=== PATIENT | female | born 1985 | race Caucasian/White ===

== ENCOUNTER 2017-07-11 14:19 | Emergency (ER) | payer BC ==
[~2017-07-11] VITALS: Ht 165.1 cm; Wt 81.6 kg
[~2017-07-11 14:19] MED LIST: BACTRIM DS 8001 TA1 PO; ETODOLAC400 MG PO; FLEXERIL10 MG PO; HYDROCODONE-APA1 TA1 PO; K-DUR 2020 MEQ PO; NOMEDS XX; ULTRAM50 MG PO
--- OUTSIDE RECORDS SUMMARY | 2017-07-11 14:42 | External Medical Summary Rpt | CCD ---
Author Author , ROMELIA LEÓN Address Unknown Phone [email or web address] Purpose Continuity of Care Document - through 2016
--- OUTSIDE RECORDS SUMMARY | 2017-07-11 14:42 | External Medical Summary Rpt | CCD ---
Author Author [facility] Address Unknown Phone Unavailable Purpose Continuity of Care Document - through 2016
--- OUTSIDE RECORDS SUMMARY | 2017-07-11 14:42 | External Medical Summary Rpt | CCD ---
Demographics Preferred Language Gambian Marital Status Unknown Pentecostal Affiliation Unknown Race Unknown Ethnic Group Unknown Author Author , ROMELIA LEÓN Address Unknown Phone Immunization No patient found.
--- OUTSIDE RECORDS SUMMARY | 2017-07-11 14:42 | External Medical Summary Rpt | CCD ---
Demographics Preferred Language Luxembourger Marital Status Unknown Christian Affiliation Unknown Race Unknown Ethnic Group Unknown Author Author , ROMELIA LEÓN Address Unknown Phone Immunization No patient found.
--- OUTSIDE RECORDS SUMMARY | 2017-07-11 14:42 | External Medical Summary Rpt | CCD ---
Author Author , ROMELIA LEÓN Address Unknown Phone [email or web address] Purpose Continuity of Care Document - through 2016
[2017-07-11 15:05] LABS: URINE BILIRUBIN - DIPSTICK NEGATIVE (NEG); UTC URINE PREGNANCY NEGATIVE (NEG)
[2017-07-11 15:06] LABS: URINE BLOOD NEGATIVE (NEG)
[2017-07-11] MEDS ORDERED: IBUPROFEN800 MG PO (15:09)
[2017-07-11] MEDS ORDERED: FLEXERIL10 MG PO (15:17)
--- NOTE | 2017-07-11 15:17 | Urgent Treatment Center Report ---
History of Present Issue Date/Time Seen by Provider 07/11/17 1500 Visit Reason Pt arrived:Walked Presenting Problem:FOR 3 WKS LOWER RIGHT BACK PAIN WITH NUMBNESS IN TOES AND FINGERS ON RIGHT SIDE Location if Accident: Onset of symptoms date/time:/ or onset unknown for:MEDICAL HX UNKNOWN Have you (or family members/close friends) recently traveled outside the [place]? N If Yes, where/when: Have you had exposure to infectious disease within the past month? TB? Other? Specify: Patient state that for around 3 weeks now she has been having pain in her right lower back that radiates down right buttock area into her right leg State that she has been having shooting pain in right leg that is worse when she tries to raise her leg or walk. State that about a week ago she had felt tingling in her toes like needles when it would start hurting ALLERGIES Coded Allergies: No Known Allergies (08/05/15) Home Medications Active Scripts Cyclobenzaprine Hcl (Flexeril) 10 MG PO TID #30 TAB Prov: 04/29/16 Tramadol Hcl (Ultram 50MG) 50 MG PO QIDP PRN pain #12 TAB Prov: 04/29/16 Reported Medications No Home Medications (NO HOME MEDICATIONS) 1 EACH XX ONCE History Medical History General CAD? No Angina: No [place]: No Hypertension? No Hyperlipidemia? No CHF? No DVT? No PE? No COPD? No Asthma? No Anemia? No GERD? No Gastric ulcers? No GI Bleed? No Hernia? No Thyroid Problems? No Hypothyroidism? No CVA? No Seizures? No Diabetes? No Renal Insuffiency? No UTI? No Stones? No BPH? No GB Disease: No Nephritic Syndrome? No Asplenia? No Hepatitis? No Sickle Cell Disease? No Arthritis? No Migraines? No Cataracts? No Glaucoma? No MRSA? No HIV? No TB? No Anxiety? No Depression? No Cancer? No More? No Immunization HX DT/Tetanus 1-4 Years Ago Surgical Hx Previous Surgery?Y ABLATION TUBUAL ORAL SURGERY Social History Smoking Hx Smoker: Never Smoker Tobacco: No Packs/day < 1 Pack Alcohol Alcohol: No Review of Systems All Other Systems Reviewed and Negative Musculoskeletal muscle pain Physical Exam Vital Signs Vital Signs Date Time Temp Pulse Resp B/P Pulse O2 O2 Flow FiO2 Ox Delivery Rate 07/11 1510 18 07/11 1449 98.6 112 18 156/112 97 12 1427 98.6 112 18 156/112 97 General Appearance normal appearance, WD/WN, no apparent distress Respiratory Status Yes: trachea midline, chest symmetrical, non tender chest. No: respiratory distress. Lung Sounds bilateral: normal breath sounds, lungs clear. Cardiovascular normal exam, regular rate/rhythm, no peripheral edema Back normal inspection, no CVA tenderness, no vertebral tenderness, bowel/ bladder continent, gait normal Neurologic alert, normal exam, oriented x 3 Comments Patient complaining of pain in lower back that radiates down into right buttock area and down right leg like that seen with sciatica Medical Decision Making LABS/Meds/Orders Pt receiving controlled substance in ED? No Results/Orders Laboratory Tests 07/11/17 1450: Urine Color YELLOW, Urine Appearance Cloudy, Urine pH 7.0, Ur Specific Orange 1.015, Urine Protein NEGATIVE, Urine Ketones NEGATIVE, Urine Blood NEGATIVE, Urine Nitrate NEGATIVE, Urine Bilirubin NEGATIVE, Urine Urobilinogen 1.0, Ur Leukocyte Esterase NEGATIVE, Urine Glucose NEGATIVE, Urine Test NEGATIVE Current Medication Orders Sig/Shira Start time Last Medication Dose Route Stop Time Status Admin Ketorolac 0 .STK-MED ONE 07/11 1503 DC Tromethamine .ROUTE Ketorolac 60 MG ONCE ONE 07/11 1500 DC 07/11 Tromethamine IM 07/11 1501 1510 Methylprednisolone 125 MG ONCE ONE 07/11 1500 DC 12 Sodium Succinate IM 07/11 1501 1511 Orders Procedure Date/time Status [facility] URINE 07/11 1450 Complete [facility] URINE DIPSTICK 07/11 1450 Complete Departure Departure Time of Disposition 1504 Disposition DC Home or Self Care(routine) Clinical Impression Primary Impression: Sciatica Qualifiers: Laterality: right Qualified Code: M54.31 - Sciatica, right side Condition STABLE Referrals Mary Mcconnell MD (Family): [facility] For referral to physical therapy if warrented Patient Instructions DI for Back Pain With Sciatica, DI for Sciatica, Sciatica, Sciatica (Alternative Therapy) Additional Instructions Follow up with family doctor Stretches will help with pain Return if needed Physical therapy may be able to show you some stretches that can help with pain Discharge Counseling Counseled pt/family regarding diagnosis, medications/RX, home care, follow up needs Prescriptions Current Visit Scripts Ibuprofen (Ibuprofen 800MG) 800 MG PO QIDP PRN pain #30 TAB Cyclobenzaprine Hcl (Flexeril) 10 MG PO TID #15 TAB at 4392
[2017-07-11 15:24] VITALS: BP 150/108
== END 2017-07-11 15:25 | disposition home or self-care (01) ==
LOC: ER 14:19 → UTC 14:19
PROVIDERS: Nurse Practitioner
DX: M54.31 Sciatica, right side (principal)